=== PATIENT | female | born 1995 | race Caucasian/White ===

== ENCOUNTER 2016-08-25 15:54 | Emergency (ER) | payer OTHER | END 2016-08-25 16:45 | disposition home or self-care (01) | LOC: ER 15:54 | DX: J20.9 Acute bronchitis, unspecified (principal); R05 Cough; Z88.8 Allergy status to other drugs, medicaments and biological substances; Z79.899 Other long term (current) drug therapy | CPT/HCPCS: 87400; 99283 ==